=== PATIENT | female | born 1945 | race Caucasian/White ===

== ENCOUNTER 2019-02-05 15:05 | Emergency (ER) | payer OTHER, BC ==
[~2019-02-05] VITALS: Ht 162.6 cm; Wt 63.5 kg
[2019-02-05] MEDS ORDERED: ASPERCREME1 EACH TRANSDERM (17:40)
[2019-02-05] MEDS ORDERED: IBUPROFEN 800800 M1 PO (17:40)
[2019-02-05 17:46] VITALS: BP 138/50
== END 2019-02-05 17:47 | disposition home or self-care (01) ==
LOC: ER 15:05
DX: S00.81XA Abrasion of other part of head, initial encounter (principal); S09.8XXA Other specified injuries of head, initial encounter; M54.2 Cervicalgia; M25.552 Pain in left hip; G20 Parkinson's disease; I10 Essential (primary) hypertension; G47.30 Sleep apnea, unspecified; Z23 Encounter for immunization; W01.198A Fall on same level from slipping, tripping and stumbling with subsequent striking against other object, initial encounter; Y92.89 Other specified places as the place of occurrence of the external cause; Y93.89 Activity, other specified; Y99.8 Other external cause status

== ENCOUNTER 2019-03-12 08:10 | Emergency (ER) | payer OTHER, BC ==
[~2019-03-12] VITALS: Ht 162.6 cm; Wt 63.5 kg
[~2019-03-12 08:10] MED LIST: ASPERCREME1 EACH TRANSDERM; IBUPROFEN 800800 M1 PO
[2019-03-12] MEDS ORDERED: ASPIRIN325 PO (08:31)
[2019-03-12] MEDS ORDERED: VITAMIN B-1100 M1 PO (08:32)
[2019-03-12] MEDS ORDERED: VITAMIN B-12500 MCG PO (08:32)
[2019-03-12] MEDS ORDERED: SINEMET CR 25-1 EACH PO (08:33)
[2019-03-12] MEDS ORDERED: VITAMIN D2000 UNIT PO (08:33)
[2019-03-12] MEDS ORDERED: COMTAN200 MG PO (08:34)
[2019-03-12] MEDS ORDERED: LEXAPRO20 MG PO (08:34)
[2019-03-12] MEDS ORDERED: ALLER-EASE180 MG PO (08:35)
[2019-03-12] MEDS ORDERED: FLONASE 0.05%50 MCG NASAL (08:36)
[2019-03-12] MEDS ORDERED: B-COMPLEX WIT400 MCG PO (08:37)
[2019-03-12] MEDS ORDERED: HYDROCHLOROTH12.5 M1 PO (08:37)
[2019-03-12] MEDS ORDERED: NAMENDA 10 MG T10 MG PO (08:38)
[2019-03-12] MEDS ORDERED: SYNTHROID75 MCG PO (08:38)
[2019-03-12] MEDS ORDERED: LISINOPRIL10 MG PO (08:38)
[2019-03-12] MEDS ORDERED: CRESTOR5 MG PO (08:39)
[2019-03-12] MEDS ORDERED: PROAIR HFA8.5 GM INH (08:39)
[2019-03-12 10:53] VITALS: BP 152/59
== END 2019-03-12 11:25 | disposition home or self-care (01) ==
LOC: ER 08:10
DX: H10.13 Acute atopic conjunctivitis, bilateral (principal); I10 Essential (primary) hypertension; G20 Parkinson's disease; G47.30 Sleep apnea, unspecified; Z88.1 Allergy status to other antibiotic agents

== ENCOUNTER 2019-08-18 13:53 | Emergency (ER) | payer OTHER, BC ==
[~2019-08-18] VITALS: Ht 162.6 cm; Wt 63.5 kg
[~2019-08-18 13:53] MED LIST changes: +ALLER-EASE180 MG PO; +ASPIRIN325 PO; +B-COMPLEX WIT400 MCG PO; +COMTAN200 MG PO; +CRESTOR5 MG PO; +FLONASE 0.05%50 MCG NASAL; +HYDROCHLOROTH12.5 M1 PO; +LEXAPRO20 MG PO; +LISINOPRIL10 MG PO; +NAMENDA 10 MG T10 MG PO; +PROAIR HFA8.5 GM INH; +SINEMET CR 25-1 EACH PO; +SYNTHROID75 MCG PO; +VITAMIN B-1100 M1 PO; +VITAMIN B-12500 MCG PO; +VITAMIN D2000 UNIT PO
[2019-08-18 19:00] VITALS: BP 153/68
[2019-08-19] MEDS ORDERED: SM NATURAL BAL100 MG PO (04:09)
[2019-08-19] MEDS ORDERED: NAMENDA XR14 MG PO (04:10)
== END 2019-08-18 19:00 | disposition home or self-care (01) ==
LOC: ER 13:53
DX: S16.1XXA Strain of muscle, fascia and tendon at neck level, initial encounter (principal); S20.211A Contusion of right front wall of thorax, initial encounter; G20 Parkinson's disease; G47.30 Sleep apnea, unspecified; I10 Essential (primary) hypertension; V89.0XXA Person injured in unspecified motor-vehicle accident, nontraffic, initial encounter; Y93.89 Activity, other specified; Y92.89 Other specified places as the place of occurrence of the external cause; Y99.8 Other external cause status